=== PATIENT | female | born 1945 | race Caucasian/White ===

== ENCOUNTER 2018-01-15 23:20 | Emergency (ER) | payer OTHER, BC ==
--- NOTE | 2018-01-15 23:23 | PDOC ---
History of Present Illness - General History Source: Patient Exam Limitations: No Limitations - History of Present Illness Initial Comments: 01/15/18 23:38 The patient is a 72 year old female with no significant past medical history who presents to the ED s/p fall earlier today. Patient states she tripped and fell 2 hours prior to arrival to the ED. Patient complains of pain to her right knee that radiates to her groin. She states her right knee pain is worsened with bending of the knee. Denies loss of consciousness. Denies head injury. Denies focal numbness/weakness /tingling. Denies fever or chills. Denies any other symptoms. PAST MEDICAL HISTORY: no significant history PAST SURGICAL HISTORY: no significant history FAMILY HISTORY: no pertinent history SOCIAL HISTORY: Pt lives with family and is employed. MEDICATIONS: reviewed ALLERGIES: As per nursing notes General: No fevers or chills, no weakness, no weight loss HEENT: No change in vision. No sore throat,. No ear pain CardioVascular: No chest pain or shortness of breath Respiratory:No cough, or wheezing. Gastrointestinal: no nausea, vomiting, diarrhea or constipation, No rectal bleeding Genitourinary: No dysuria, hematuria, or frequency Musculoskeletal: + right knee pain. Neurologic: No headache, vertigo, dizziness or loss of consciousness Psychiatric: nor depression Skin: No rashes or easy bruising Endocrine: no increased thirst or abnormal weight change Allergic: no skin or latex allergy All other systems reviewed and normal GENERAL: The patient is awake, alert, and fully oriented, in no acute distress. HEAD: Normal with no signs of trauma. EYES: Pupils equal, round and reactive to light, extraocular movements intact, sclera anicteric, conjunctiva clear. EXTREMITIES: + Tenderness on palpation of the right patella with some swelling, no tenderness on palpation of the lower leg or thigh. No ligaments instability. Neurovascular intact. NEUROLOGICAL: Normal speech, normal gait. PSYCH: Normal mood, normal affect. SKIN: Warm, Dry, normal turgor, no rashes or lesions noted. <Pretty Franco - Last Filed: 01/15/18 23:38> - General History Source: Patient Exam Limitations: No Limitations - History of Present Illness Initial Comments: A portion of this note was documented by scribe services under my direction. I have reviewed the details of the note, within reason, and agree with the documentation. The case summary and management plan written by me. 01/16/18 00:33 X-ray : Questionable nondisplaced fracture of the patella Assessment and plan: This a 72-year-old female who fell bruising her right knee. X-ray shows an area that is questionable for a nondisplaced fracture however could just be a variant. Patient given a knee immobilizer and will follow up with Dr. Pro on Thursday as a precaution. Patient told to take continue ibuprofen or Tylenol as needed for pain <Kayla Glaser I - Last Filed: 01/16/18 00:36> - General Chief Complaint: Injury Stated Complaint: RT KNEE PAIN Time Seen by Provider: 01/15/18 23:23 Past History <Pretty Franco - Last Filed: 01/15/18 23:38> - Past Medical History Thyroid Disease: Yes - Suicide/Smoking/Psychosocial Hx Smoking History: Never smoked Have you smoked in the past 12 months: No Hx Alcohol Use: Yes (WITH DINER) Drug/Substance Use Hx: No Substance Use Type: Alcohol <Kayla Glaser I - Last Filed: 01/16/18 00:36> - Past Medical History Allergies/Adverse Reactions: Allergies Allergy/AdvReac Type Severity Reaction Status Date / Time ibuprofen [From Motrin] AdvReac Mild Verified 01/15/18 23:22 aspirin AdvReac Verified 02/14/15 12:10 Home Medications: Ambulatory Orders Levothyroxine [Synthroid -] 25 mcg PO DAILY 01/15/18 Naproxen Sodium [Aleve] 440 mg PO ONCE 01/15/18 *Physical Exam - Vital Signs Last Vital Signs Temp Pulse Resp BP Pulse Ox 97.9 F 81 16 117/66 98 01/15/18 23:25 01/15/18 23:25 01/15/18 23:25 01/15/18 23:25 01/15/18 23:25 <Pretty Franco - Last Filed: 01/15/18 23:38> *DC/Admit/Observation/Transfer - Attestations Scribe Attestion: 01/15/18 23:38 Documentation prepared by Pretty Franco, acting as medical data analyst for Kayla Glaser MD <Pretty Franco - Last Filed: 01/15/18 23:38> - Discharge Dispostion Decision to Admit order: No <JailynKayla Melara - Last Filed: 01/16/18 00:36> Diagnosis at time of Disposition: Contusion of right knee Qualifiers: Encounter type: initial encounter Qualified Code(s): S80.01XA - Contusion of right knee, initial encounter - Discharge Dispostion Disposition: HOME Condition at time of disposition: Stable - Referrals Referrals: Dion Pro MD [Staff Physician] - - Patient Instructions Additional Instructions: There is an area on your x-ray that is concerning for possible nondisplaced small fracture. Ear put in a knee immobilizer which she should wear while awake until you see the orthopedist next Thursday. You can take the knee immobilizer off at night in bed. Call Dr. Pro Thursday morning get an appointment. Return to the emergency department immediately with ANY new, persistent or worsening symptoms. Continue any medications as previously prescribed by your physician. You should follow up with your primary doctor as soon as possible regarding today's emergency department visit. . Please make sure your doctor reviews the results of your emergency evaluation. Thank you for coming to the Emergency Department today for your care. It was a pleasure to see you today. Please note that your evaluation is INCOMPLETE until you follow-up with your doctor.
[2018-01-15 23:30] VITALS: BP 117/66; PULSE 81; TEMP 97.9; BMI 19.5
--- NOTE | 2018-01-16 12:21 | PDOC ---
Patient Follow-up (Call Back) - Post ED Follow - Up Condition at time of discharge: Stable Disposition at time of original discharge: HOME - Disposition Additional Instructions/Notes: Received a call from the radiologist today. X-ray read as fracture of the patella, nondisplaced. Patient was contacted by phone. She is doing well and ambulating adequately with a knee immobilizer. She was informed that she had a fracture of the patella and that it was important for her to follow-up with an target protection specialist. She appreciated the call, will follow up as directed,.
== END 2018-01-16 00:39 | disposition home or self-care (01) ==
LOC: FER 23:20
DX: S80.01XA Contusion of right knee, initial encounter (principal); W18.39XA Other fall on same level, initial encounter; Y93.89 Activity, other specified; Y92.9 Unspecified place or not applicable; E07.9 Disorder of thyroid, unspecified
CPT/HCPCS: 73562-TC-RT-FY; 99282-25

== ENCOUNTER 2018-06-16 05:58 | Day surgery (SDC) | payer OTHER, BC ==
[2018-06-09 10:10] VITALS: BMI 20.7
[2018-06-16 06:34] VITALS: PULSE 72
[2018-06-16] MEDS ORDERED: MIDAZOLAM HCL 2 MG/2 ML SINGLE DOSE VIAL ONE (06:57)
[2018-06-16] MEDS ORDERED: PROPOFOL 20 ML ONE ×6 (06:57)
[2018-06-16] MEDS ORDERED: SUCCINYLCHOLINE CHLORIDE 200 MG/10 ML VIAL ONE (06:57)
[2018-06-16] MEDS ORDERED: LIDOCAINE HCL 2% (20ML MULTI-DOSE VIAL) NR ONE (07:13)
[2018-06-16] MEDS ORDERED: LIDOCAINE HCL 2% (50ML VIAL) NR ONE (07:38)
[2018-06-16] MEDS ORDERED: ONDANSETRON 4 MG/2 ML VIAL IVPUSH PRN (08:06)
[2018-06-16] MEDS ORDERED: ACETAMINOPHEN 325 MG TABLET (FP) PO PRN (08:06)
[2018-06-16] MEDS ORDERED: LACTATED RINGERS SOLUTION 1,000 ML IV SCH (08:15)
[2018-06-16 08:17] VITALS: BP 117/65; TEMP 97.8
--- NOTE | 2018-06-16 17:29 | OP ---
DATE OF OPERATION: 06/16/2018 PREOPERATIVE DIAGNOSIS: Left long trigger finger. POSTOPERATIVE DIAGNOSES: 1. Left long trigger finger. 2. Left long finger mass. OPERATIVE PROCEDURES: 1. Left long finger trigger finger release. 2. Left long finger mass. SURGEON: Ari Farnsworth MD ANESTHESIA: Local sedation. COMPLICATIONS: None. ESTIMATED BLOOD LOSS: Minimal. GEOGRAPHY FACULTY MEMBER: Jason Palomares PA-C INDICATION FOR PROCEDURE: The patient is a 72-year-old female with above findings which is indicated for operative treatment. Risks, benefits, and alternatives were discussed with patient at length. Proper informed consent was obtained. Of note, prior to the procedure, in the holding area, prior to any anesthetic being given, the patient informed me a small bump at the distal edge of the A1 talib. I told her that we could look at what it was and if she desired it to be removed at the same time if possible. I explained that we would see what it looked like and, depending on the field, we could remove the mass. She decided to proceed. DESCRIPTION OF PROCEDURE: After proper identification of the patient and the correct operative site, patient was brought to the operating room and placed supine on the operating table. All bony prominences were well padded. Sedation with local anesthesia was given. Left upper extremity was prepped and draped in usual sterile fashion. A well-padded tourniquet was placed over the sterile prep. Esmarch bandage was used to exsanguinate left upper extremity. Tourniquet was inflated to 250 mmHg. A longitudinal incision was made in the palm over the A1 talib of the long finger. Incision was taken sharply through skin with blunt and sharp dissection through subcutaneous tissue. There was a 1 mm x 1 mm mass coming off of the flexor tendon sheath just distal to the A1 talib. This appeared to be cystic in nature and was excised and sent for Pathology and evaluation. The A1 talib was then divided. The patient was asked to flex and extend the finger. No further trigger was noted. The wound was repaired with 5-0 plain gut suture. Sterile dressings were applied. Patient was brought to the recovery room in stable condition. Patient tolerated the procedure well. Yassine CHEN/[id number]
--- NOTE | 2018-06-21 16:43 | PATH ---
Surgical Pathology Report Patient Name: RANDY MORALES [facility]. Rec. #: [id number] /Age/Gender: 1945 (Age: 72) / F Account: [id number] Location: [facility] AMBULATORY Taken: 06/16/2018 Received: 06/16/2018 Reported: 06/21/2018 Physicians: Ari Farnsworth M.D. Specimen(s) Received MASS OF LEFT LONG FINGER (MIDDLE) Clinical History Left long trigger finger Final Diagnosis MASS OF LEFT LONG FINGER (MIDDLE), EXCISION: FIBROCONNECTIVE TISSUE WITH CYSTIC AND MYXOID CHANGE. Comment: This may represent a ganglion cyst. Suggest clinical correlation. Electronically Signed Brandon Baker M.D. Gross Description Received in formalin labeled "mass of left long finger," is a 0.4 cm greatest dimension goodman portion of soft tissue. The specimen is submitted in toto in one cassette. /06/17/2018 saudi06/17/2018
== END 2018-06-16 08:48 | disposition home or self-care (01) ==
LOC: FASU 05:58
PROVIDERS: ATTEND Orthopaedic Surgery Hand Surgery
PROC: 0LB80ZZ Excision of Left Hand Tendon, Open Approach (ICD-10-PCS; 2018-06-16)
PROC: 0LN80ZZ Release Left Hand Tendon, Open Approach (ICD-10-PCS; principal; 2018-06-16 07:30)
DX: M65.332 Trigger finger, left middle finger (principal); D21.12 Benign neoplasm of connective and other soft tissue of left upper limb, including shoulder
CPT/HCPCS: 88304-TC

== ENCOUNTER 2020-04-01 08:25 | Emergency (ER) | payer OTHER, BC ==
[2020-04-01] MEDS ORDERED: ONDANSETRON 4 MG/2 ML VIAL IVPB ONE (08:40)
[2020-04-01] MEDS ORDERED: SODIUM CHLORIDE 1,000 ML IV STA (08:40)
[2020-04-01] MEDS ORDERED: ONDANSETRON 4 MG/2 ML VIAL ONE (08:54)
[2020-04-01 09:03] VITALS: PULSE 89; BMI 20.3
[2020-04-01 09:06] LABS: BASO % 0.6 % (0-2.0); EOS % 0.9 % (0-4.5); HEMATOCRIT 40.7 % (32.4-45.2); HEMOGLOBIN 13.1 GM/dl (10.7-15.3); LYMPH % 14.3 % (8-40); MCH 30.3 pg (25.7-33.7); MCHC 32.3 g/dl (32.0-36.0); MEAN PLT VOLUME 8.6 fl (7.5-11.1); MONO % 6.3 % (3.8-10.2); NEUT % 77.9 % (42.8-82.8); PLATELET COUNT 249 K/MM3 (134-434); RBC 4.33 M/mm3 (3.60-5.2); RDW 14.2 % (11.6-15.6); WHITE BLOOD COUNT 8.7 K/mm3 (4.0-10.8)
[2020-04-01 09:37] LABS: ALBUMIN 3.8 g/dl (3.4-5.0); BILIRUBIN,TOTAL 0.6 mg/dl (0.2-1); CREATININE 0.5 mg/dl (0.55-1.3); POTASSIUM 3.5 mmol/L (3.5-5.1); TOT PROT 6.5 g/dl (6.4-8.2)
[2020-04-01 10:24] LABS: EPITHELIAL CELLS FEW /hpf
[2020-04-01 10:39] VITALS: BP 113/64; TEMP 99
== END 2020-04-01 10:40 | disposition home or self-care (01) ==
LOC: FER 08:25
PROC: 3E033NZ Introduction of Analgesics, Hypnotics, Sedatives into Peripheral Vein, Percutaneous Approach (ICD-10-PCS; principal; 2020-04-01)
PROC: 3E0337Z Introduction of Electrolytic and Water Balance Substance into Peripheral Vein, Percutaneous Approach (ICD-10-PCS; 2020-04-01)
DX: K52.9 Noninfective gastroenteritis and colitis, unspecified (principal)
CPT/HCPCS: 36415; 80053; 81003; 81015; 83690; 85025; 99284-25; C9803; U0003

== ENCOUNTER 2020-11-19 16:18 | Emergency (ER) | payer OTHER, BC ==
[2020-11-19 16:48] VITALS: BP 133/77; PULSE 74; TEMP 98.4; BMI 20.3
== END 2020-11-19 17:36 | disposition home or self-care (01) ==
LOC: FER 16:18
DX: F41.9 Anxiety disorder, unspecified (principal)
CPT/HCPCS: 99283-25

== ENCOUNTER 2021-09-24 18:42 | Emergency (ER) | payer OTHER, BC ==
[2021-09-24 19:12] VITALS: BP 154/84; PULSE 67; TEMP 98.7; BMI 20.8
[2021-09-24] MEDS ORDERED: HYOSCYAMINE SULFATE 0.125 MG *ODT PO ONE (19:38)
[2021-09-24] MEDS ORDERED: SODIUM CHLORIDE 1,000 ML IV ONE (19:47)
[2021-09-24 20:01] LABS: HEMATOCRIT 34.9 % (32.4-45.2); HEMOGLOBIN 12.3 G/dL (10.7-15.3); MCH 32.2 pg (25.7-33.7); MCHC 35.4 g/dl (32.0-36.0); MEAN PLT VOLUME 8.3 fl (7.5-11.1); PLATELET COUNT 191.7 10^3/uL (134-434); RBC 3.83 10^6/uL (3.60-5.2); RDW 14.9 % (11.6-15.6); WHITE BLOOD COUNT 7.6 10^3/uL (4.0-10.8)
[2021-09-24 20:12] LABS: PLATELET ESTIMATE ADEQUATE
[2021-09-24 20:13] LABS: ALBUMIN 3.7 g/dl (3.4-5.0); BILIRUBIN,TOTAL 0.4 mg/dl (0.2-1); CREATININE 0.5 mg/dl (0.55-1.3)
[2021-09-24] MEDS ORDERED: KETOROLAC TROMETHAMINE 30 MG/1 ML VIAL IVPUSH ONE (21:15)
[2021-09-24] MEDS ORDERED: KETOROLAC TROMETHAMINE 30 MG/1 ML VIAL ONE (21:16)
[2021-09-24] MEDS ORDERED: MAGNESIUM CITRATE 300 ML BOTTLE ONE (23:10)
[2021-09-24] MEDS ORDERED: MAGNESIUM CITRATE 300 ML BOTTLE PO ONE (23:11)
== END 2021-09-24 23:21 | disposition home or self-care (01) ==
LOC: FER 18:42
PROC: 3E0333Z Introduction of Anti-inflammatory into Peripheral Vein, Percutaneous Approach (ICD-10-PCS; principal; 2021-09-24)
PROC: 3E0337Z Introduction of Electrolytic and Water Balance Substance into Peripheral Vein, Percutaneous Approach (ICD-10-PCS; 2021-09-24)
DX: R10.31 Right lower quadrant pain (principal); K59.00 Constipation, unspecified
CPT/HCPCS: 36415; 74176-TC; 80053; 81003; 81015; 85025; 99284-25

== ENCOUNTER 2022-12-19 10:01 | Emergency (ER) | payer OTHER, BC ==
[2022-12-19 10:04] VITALS: BP 132/77; PULSE 68; RESP 16; TEMP 97.6; BMI 20.5
== END 2022-12-19 11:14 | disposition home or self-care (01) ==
LOC: FER 10:01
DX: M25.562 Pain in left knee (principal); M25.462 Effusion, left knee; M79.672 Pain in left foot; W01.0XXA Fall on same level from slipping, tripping and stumbling without subsequent striking against object, initial encounter
CPT/HCPCS: 73560-TC-LT-FY; 73630-TC-LT; 99283-25